=== PATIENT | male | born 1965 | race Caucasian/White ===

== ENCOUNTER 2018-05-07 20:11 | Emergency (ER) | payer BC ==
[2018-05-07 20:34] VITALS: RESP 20; O2SAT 96
--- NOTE | 2018-05-07 20:46 | C.PDOC ---
History Of Present Illness 52 year old male presets to the ED c/o dizziness, lightheadedness, headache that started today at approximately 13:00-13:30. Patient is ambulating without any difficulty however he still reports feeling a little off. Patient denies fever, chills, nausea, vomit, trauma, injury, fall, tinnitus, visual changes. Time Seen by Provider: 05/07/18 20:46 Chief Complaint (Nursing): Dizziness/Lightheaded History Per: Patient History/Exam Limitations: no limitations Onset/Duration Of Symptoms: Hrs Current Symptoms Are (Timing): Still Present Activity At Onset Of Symptoms: Standing Associated Symptoms Preceding Syncopal Episode: Lightheadedness Seizure Or Post-ictal Symptoms: None Fall Associated With With Symptoms: No Severity: None Recent travel outside of the [place]: No Additional History Per: Patient Past Medical History Reviewed: Historical Data, Nursing Documentation, Vital Signs Vital Signs: Last Vital Signs Temp 98.5 F 05/07/18 20:30 Pulse 73 05/07/18 20:30 Resp 20 05/07/18 20:30 BP 183/114 H 05/07/18 20:30 Pulse Ox 96 05/07/18 23:23 - Medical History PMH: Asthma Surgical History: No Surg Hx Family History: States: Unknown Family Hx - Social History Hx Tobacco Use: No Hx Alcohol Use: Yes Hx Substance Use: No - Immunization History Hx Tetanus Toxoid Vaccination: No Hx Influenza Vaccination: No Hx Pneumococcal Vaccination: No Review Of Systems Constitutional: Negative for: Fever, Chills Eyes: Negative for: Vision Change ENT: Negative for: Ear Pain Respiratory: Negative for: Cough, Shortness of Breath Gastrointestinal: Negative for: Nausea, Vomiting Neurological: Positive for: Headache, Dizziness. Negative for: Weakness, Numbness Physical Exam - Physical Exam Appears: Non-toxic, No Acute Distress Skin: Warm, Dry Head: Normacephalic Eye(s): bilateral: Normal Inspection, PERRL, EOMI Oral Mucosa: Moist Throat: No Erythema, No Exudate Neck: Supple Chest: Symmetrical Cardiovascular: Rhythm Regular Respiratory: No Rales, No Rhonchi, No Wheezing Gastrointestinal/Abdominal: Soft, No Tenderness, No Guarding, No Rebound Back: Normal Inspection Extremity: No Tenderness, No Swelling Extremity: Bilateral: Atraumatic, Normal Color And Temperature, Normal ROM Neurological/Psych: Oriented x3, Normal Speech, Other (no nystagmus ) Gait: Steady ED Course And Treatment - Laboratory Results Result Diagrams: 05/07/18 21:29 05/07/18 21:29 ECG: Interpreted By Me, Viewed By Me ECG Rhythm: Sinus Rhythm (70), Nonspecific Changes O2 Sat by Pulse Oximetry: 96 (ON RA) Pulse Ox Interpretation: Normal - Radiology CXR: Interpreted by Me, Viewed By Me - CT Scan/US CT head Other Rad Studies (CT/US): Read By Radiologist, Radiology Report Reviewed CT/US Interpretation: FINDINGS: Brain: Unremarkable. No hemorrhage. No significant white matter disease. No edema. Normal. evangelista white matter interfaces are present. Ventricles: Unremarkable. No ventriculomegaly. Bones/ joints: Unremarkable. No acute fracture. Soft tissues: Unremarkable. Sinuses: Unremarkable as visualized. No acute sinusitis. Mastoid air cells: Unremarkable as visualized. No mastoid effusion. IMPRESSION: Normal head/ brain CT. Thank you for allowing us to participate in the care of your patient. Dictated and Authenticated by: Zenon Henry MD. 05/07/2018 11:18 PM Eastern Time ([place] & [place]) Progress Note: Labs. - CT head. - EKG. - Labs. - CXR. - Antivert 25 mg PO. - IV fluids. - UA Reevaluation Time: 00:53 Reassessment Condition: Improved Disposition Counseled Patient/Family Regarding: Studies Performed, Diagnosis, Need For Followup, Rx Given - Disposition Referrals: [facility] [Outside] [facility] [Outside] Disposition: HOME/ ROUTINE Disposition Time: 20:46 Condition: FAIR Additional Instructions: Please return if symptoms recur Prescriptions: Meclizine [Antivert] 25 mg PO TID #15 tab Ondansetron ODT [Zofran ODT] 1 odt PO BID PRN #6 odt PRN Reason: Nausea/Vomiting Instructions: Labyrinthitis, Dizziness, Nonvertigo, (DC) Forms: [facility] (Bulgarian) - Clinical Impression Clinical Impression: Dizziness, Labyrinthitis - Scribe Statement The provider has reviewed the documentation as recorded by the Scribe Didier Ruiz All medical record entries made by the Scribe were at my direction and personally dictated by me. I have reviewed the chart and agree that the record accurately reflects my personal performance of the history, physical exam, medical decision making, and the department course for this patient. I have also personally directed, reviewed, and agree with the discharge instructions and disposition.
[2018-05-07] MEDS ORDERED: Sodium Chloride 0.9% 1,000 ML IV ONE (21:12)
[2018-05-07 21:33] LABS: BASO % 0.6 % (0.0-2.0); EOS # 0.3 K/uL (0.0-0.7); EOS % 4.2 % (0.0-4.0); HEMOGLOBIN 14.7 g/dL (12.0-18.0); LYMPH # 3.9 K/uL (1.0-4.3); LYMPH % 48.2 % (20.0-40.0); MEAN CORPUSCULAR HEMOGLOBIN 29.3 pg (27.0-31.0); MEAN CORPUSCULAR HGB CONC 33.7 g/dL (33.0-37.0); MEAN PLATELET VOLUME 7.9 fL (7.2-11.7); MONO # 0.7 K/uL (0.0-0.8); MONO % 8.5 % (0.0-10.0); NEUT # 3.1 K/uL (1.8-7.0); NEUT % 38.5 % (50.0-75.0); NRBC % 0.1 % (0.0-2.0); RED CELL DISTRIBUTION WIDTH 12.9 % (11.5-14.5); WHITE BLOOD COUNT 8.1 K/uL (4.8-10.8)
[2018-05-07 21:46] LABS: ALB/GLOB RATIO 1.3 (1.0-2.1); ALBUMIN 4.2 g/dL (3.5-5.0); CALCIUM 9.5 mg/dl (8.6-10.4); GFR AFRICAN-AMERICAN > 60; GFR NON-AFRICAN AMERICAN > 60; PROTHROMBIN TIME 10.9 SECONDS (9.7-12.2)
[2018-05-07 21:53] LABS: ALT/SGPT 41 U/L (21-72); AST/SGOT 38 U/L (17-59); BLOOD UREA NITROGEN 15 mg/dL (9-20)
[2018-05-07 22:00] LABS: SQUAMOUS EPITHIAL < 1 /hpf (0-5); URINE BILIRUBIN NEGATIVE (NEGATIVE); URINE BLOOD NEGATIVE (NEGATIVE); URINE CLARITY Clear (Clear); URINE COLOR Yellow (YELLOW); URINE GLUCOSE (UA) NORMAL (Normal); URINE LEUKOCYTE ESTERASE NEG Leu/uL (Negative); URINE PROTEIN NEGATIVE (NEGATIVE); URINE UROBILINOGEN NORMAL mg/dL (0.2-1.0)
[2018-05-08 01:10] VITALS: BP 140/90; PULSE 72; TEMP 98.2
--- NOTE | 2018-05-08 08:20 | CT ---
PROCEDURE: CT HEAD WITHOUT CONTRAST. HISTORY: dizziness , headache COMPARISON: None available. TECHNIQUE: Axial computed tomography images were obtained through the head/brain without intravenous contrast. Radiation dose: Total exam DLP = 878 mGy-cm. This CT exam was performed using one or more of the following dose reduction techniques: Automated exposure control, adjustment of the mA and/or kV according to patient size, and/or use of iterative reconstruction technique. FINDINGS: HEMORRHAGE: No intracranial hemorrhage. BRAIN: No mass effect or edema. No atrophy or chronic microvascular ischemic changes. VENTRICLES: Unremarkable. No hydrocephalus. CALVARIUM: Unremarkable. PARANASAL SINUSES: Unremarkable as visualized. No significant inflammatory changes. MASTOID AIR CELLS: Unremarkable as visualized. No inflammatory changes. OTHER FINDINGS: None. IMPRESSION: Normal CT of the Head.
--- NOTE | 2018-05-08 11:33 | RAD ---
PROCEDURE: CHEST RADIOGRAPH, 1 VIEW HISTORY: SOB COMPARISON: Comparison chest dated 02/17/2015 FINDINGS: LUNGS: Poor inspiration with low lung volumes, crowded bronchovascular markings and mild bibasilar atelectasis. PLEURA: No pneumothorax or pleural fluid seen. CARDIOVASCULAR: Normal. OSSEOUS STRUCTURES: No significant abnormalities. VISUALIZED UPPER ABDOMEN: Normal. OTHER FINDINGS: None. IMPRESSION: Poor inspiration with low lung volumes, crowded bronchovascular markings and mild bibasilar atelectasis.
--- NOTE | 2018-05-10 12:13 | CARD ---
APPROVED REPORT EKG Measurement Heart [id number] MT [id number] <Conclusion> Normal sinus rhythm Normal ECG
== END 2018-05-08 01:30 | disposition home or self-care (01) ==
LOC: C.ER 20:11
DX: R42 Dizziness and giddiness (principal); H83.09 Labyrinthitis, unspecified ear
CPT/HCPCS: 70450; 71045; 80053; 81001; 85025; 85610; 85730; 96360; 99285; J7030

== ENCOUNTER 2019-04-09 07:04 | Observation (INO) | payer BC ==
[2019-04-09 07:46] LABS: BASO # 0.1 K/uL (0.0-0.2); EOS # 0.4 K/uL (0.0-0.7); EOS % 5.1 % (0.0-4.0); HEMOGLOBIN 14.9 g/dL (12.0-18.0); LYMPH # 4.4 K/uL (1.0-4.3); LYMPH % 56.3 % (20.0-40.0); MEAN CORPUSCULAR HEMOGLOBIN 30.3 pg (27.0-31.0); MEAN CORPUSCULAR HGB CONC 34.4 g/dL (33.0-37.0); MEAN PLATELET VOLUME 8.8 fL (7.2-11.7); MONO # 0.7 K/uL (0.0-0.8); MONO % 8.5 % (0.0-10.0); NEUT # 2.3 K/uL (1.8-7.0); NEUT % 29.1 % (50.0-75.0); NRBC % 0.1 % (0.0-2.0); RBC 4.93 Mil/uL (4.40-5.90); RED CELL DISTRIBUTION WIDTH 12.9 % (11.5-14.5); WHITE BLOOD COUNT 7.8 K/uL (4.8-10.8)
--- NOTE | 2019-04-09 07:53 | C.PDOC ---
History Of Present Illness 53 y/o male presents to the ER complaining of left sided chest pain which began at 1 am. Patient states that the pain is constant and non-radiating; it is not reproducible and nonpleuritic. The prior night, he was woken up from sleep with heart racing/thumbing. Patient does not have regular follow up with a PMD. He denies SOB, palpitations, cough, fever, chills. Patient has PMhx of seasonal allergies/asthma. (+) [place] in both grandparents. Time Seen by Provider: 04/09/19 07:09 Chief Complaint (Nursing): Chest Pain History Per: Patient History/Exam Limitations: no limitations Onset/Duration Of Symptoms: Hrs Current Symptoms Are (Timing): Still Present Severity: Moderate Quality: "Pain" Past Medical History Reviewed: Historical Data, Nursing Documentation, Vital Signs Vital Signs: Last Vital Signs Temp 98.6 F 04/09/19 07:09 Pulse 79 04/09/19 07:09 Resp 18 04/09/19 07:09 BP 185/112 H 04/09/19 07:09 Pulse Ox 94 L 04/09/19 07:09 Primary Care Provider: Non [facility] Provider, - Medical History PMH: Asthma Surgical History: No Surg Hx Family History: States: No Known Family Hx - Social History Hx Tobacco Use: No Hx Alcohol Use: Yes Hx Substance Use: No - Immunization History Hx Tetanus Toxoid Vaccination: No Hx Influenza Vaccination: No Hx Pneumococcal Vaccination: No Review Of Systems Constitutional: Negative for: Fever, Chills Cardiovascular: Positive for: Chest Pain. Negative for: Palpitations Respiratory: Negative for: Cough, Shortness of Breath Gastrointestinal: Negative for: Nausea, Vomiting Physical Exam - Physical Exam Appears: Other (comfortable, speaking in full sentences) Skin: Normal Color, Warm, Dry Head: Atraumatic, Normacephalic Eye(s): bilateral: Normal Inspection Nose: Normal Oral Mucosa: Moist Neck: Supple Chest: Symmetrical, No Tenderness Cardiovascular: Rhythm Regular Respiratory: Normal Breath Sounds, No Rales, No Rhonchi, No Wheezing Gastrointestinal/Abdominal: Normal Exam, Soft, No Tenderness, No Guarding, No Rebound Extremity: Normal ROM, Other (no leg edema) Neurological/Psych: Oriented x3, Normal Speech ED Course And Treatment - Laboratory Results Result Diagrams: 04/09/19 07:43 04/09/19 07:43 ECG: Interpreted By Me, Viewed By Me ECG Rhythm: Sinus Rhythm Interpretation Of ECG: NSR with no acute ST/T wave changes Rate From EC O2 Sat by Pulse Oximetry: 94 (RA) Pulse Ox Interpretation: Normal Progress Note: Blood work, EKG, CXR ordered and reviewed. Patient given PO ASA and SL nitro. (+) relief of chest pain with nitroglycerin. Patient does not have PMD or get regular care, (+) h/o smoking, was hypertensive on arrival, (+) [place] history in two grandparents - will keep for chest pain observation. Disposition - Disposition Forms: [facility] (Japanese) - Scribe Statement The provider has reviewed the documentation as recorded by the Pashaibnoah Frausto Provider Attestation: All medical record entries made by the Scribe were at my direction and personally dictated by me. I have reviewed the chart and agree that the record accurately reflects my personal performance of the history, physical exam, medical decision making, and the department course for this patient. I have also personally directed, reviewed, and agree with the discharge instructions and disposition.
[2019-04-09 07:54] LABS: PARTIAL THROMBOPLASTIN TIME 32.9 SECONDS (21-34)
[2019-04-09 08:02] LABS: ALB/GLOB RATIO 1.5 (1.0-2.1); ALBUMIN 4.5 g/dL (3.5-5.0); ALT/SGPT 37 U/L (21-72); AST/SGOT 39 U/L (17-59); BLOOD UREA NITROGEN 18 mg/dL (9-20); CALCIUM 9.2 mg/dl (8.6-10.4); GFR NON-AFRICAN AMERICAN > 60
[2019-04-09 08:12] LABS: CK-MB 1.12 ng/mL (0.0-3.38)
[2019-04-09 11:10] LABS: BARBITURATES, UR NEGATIVE (NEGATIVE); OPIATES, UR NEGATIVE (NEGATIVE); PHENCYCLIDINE, UR NEGATIVE (NEGATIVE)
[2019-04-09 11:36] LABS: BENZODIAZEPINES, UR NEGATIVE (NEGATIVE)
--- NOTE | 2019-04-09 12:00 | RAD ---
Date of service: 04/09/2019 PROCEDURE: CHEST RADIOGRAPH, 1 VIEW HISTORY: cp COMPARISON: 05/07/2018 FINDINGS: LUNGS: Clear. PLEURA: No pneumothorax or pleural fluid seen. CARDIOVASCULAR: No aortic atherosclerotic calcification present. Normal. OSSEOUS STRUCTURES: No significant abnormalities. VISUALIZED UPPER ABDOMEN: Normal. OTHER FINDINGS: None. IMPRESSION: No active disease.
[2019-04-09] MEDS ORDERED: Enoxaparin 40 mg Syringe SC ONE (14:34)
--- NOTE | 2019-04-10 03:32 | CON ---
DATE: 04/09/2019 CARDIOLOGY CONSULTATION REASON FOR CONSULTATION: Chest pain. HISTORY OF PRESENT ILLNESS: The patient is a 53-year-old male who smokes cigar and is on Singulair at home 10 mg daily for what he describes as allergy. The patient presents because of chest pain which is sharp, left sided and nonradiating. The patient did report shortness of breath, but denies any diaphoresis, although in the emergency room reporting the chest pain was , shortness of breath was denied. The patient underwent treadmill stress test in 05/2018 which was negative for ischemia. There was hypertensive response to exercise, and the patient has zero exercise tolerance. SOCIAL HISTORY: The patient is a cigar smoker. 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 He is , lives with his . MEDICATIONS: Singulair 10 mg once a day. Pneumococcal vaccine was given as well as aspirin 325 mg daily in the emergency room. REVIEW OF SYSTEMS: No nausea or vomiting. No fever or chills. No productive cough. PHYSICAL EXAMINATION: GENERAL: The patient is a middle-aged male who does not appear to be in any distress. VITAL SIGNS: Blood pressure 147/81, heart rate 63, temperature 97.5, respirations 20. HEENT: Normocephalic. NECK: No JVD. CHEST: Clear. HEART: S1 and S2 are regular. ABDOMEN: Soft. EXTREMITIES: No edema. LABORATORY DATA: Urine drug screen is negative. SMA-7 is within normal limits except for glucose of 115 and creatinine of 0.6. Admitting hemoglobin, hematocrit, white count and platelet count are within normal limits. EKG revealed sinus rhythm, consider old septal infarct. Two sets of troponins are negative. ASSESSMENT: 1. Atypical chest pain. Myocardial infarction is ruled out. 2. Rule out pulmonary infarction. 3. Rule out less likely possibility of deep venous thrombosis. The patient has numbness starting his right thigh last night. RECOMMENDATIONS: Resume aspirin 81 mg once a day. Start Lovenox at 30 mg subcutaneously daily. Obtain serum D-dimer as well as venous Doppler of the lower extremities. Raúl Belcher MD
--- NOTE | 2019-04-10 04:28 | HP ---
HISTORY OF PRESENT ILLNESS: This is a 53-year-old male with no significant past medical history, presented to emergency room with left-sided sharp chest pain that started about 6 to 7 hours prior to admission. The patient stated that the pain was constant and nonradiating. Prior night, the patient was woken up from sleep with feeling of heart racing. The patient did not have any recent checkup or followup with any primary care physician. The patient denies shortness of breath, palpitation, cough, fever, or chills. PAST MEDICAL HISTORY: Denies. FAMILY HISTORY: No significant family history also. MEDICATIONS: Singulair 10 mg daily. SOCIAL HISTORY: Occasional smoking cigar. No EtOH or substance abuse. FAMILY HISTORY: Noncontributory. ALLERGIES: . PHYSICAL EXAMINATION: GENERAL: The patient is in bed not, in any cardiopulmonary distress. VITAL SIGNS: Blood pressure 132/78, temperature 97.8, respiratory rate 20 and pulse 66. HEENT: Pupils equal, reactive to light. Normal-appearing mucosa of the conjunctivae, oropharynx, and nasal membrane mucosa. NECK: Supple. No JVD, no carotid bruit. No lymph node. No thyromegaly. CHEST AND LUNGS: Bilateral symmetrical expansion. Good air exchange. No rales, no rhonchi. CARDIOVASCULAR: PMI not localized. S1, S2. No additional sounds. ABDOMEN: Normoactive bowel sounds. No tenderness, no organomegaly. No masses. EXTREMITIES: No cyanosis, no clubbing, no edema. CENTRAL NERVOUS SYSTEM: Alert, awake, oriented x3. No neurological deficit could be appreciated. ASSESSMENT: 1. Chest pain, rule out acute coronary syndrome. 2. Seasonal allergies. 3. Hypertension as the patient came with blood pressure of 185/112. PLAN: We will do cardiac enzymes every 8 hours, cardiology consult, echocardiogram. Start patient the patient on aspirin and continue Singulair. Katherine Francis MD
[2019-04-10 08:10] VITALS: BP 132/84; RESP 20; TEMP 97.2
[2019-04-10 08:18] LABS: HDL CHOLESTEROL 49 mg/dL (30-70)
[2019-04-10 08:29] LABS: LDL CHOLESTEROL 189 mg/dL (0-129)
[2019-04-10] MEDS ORDERED: Enoxaparin 40 mg Syringe SC SCH (10:00)
[2019-04-10] MEDS ORDERED: Pneumococcal 23-Valent Vaccine IM ONE (10:00)
--- NOTE | 2019-04-10 10:25 | NM ---
Date of service: 04/09/2019 COMPARISON: April 09, 2019. TECHNIQUE: 10.0 mCi technetium 99-m Xe-133 Gas. 5.0 mCI technetium 99-m MAA administered intravenously. FINDINGS: VENTILATION COMPONENT: Normal. PERFUSION COMPONENT: Heterogeneous distribution of radionuclide. No geographic, segmental, lobar abnormalities apparent on the present examination. IMPRESSION: Low probability ventilation perfusion scan for pulmonary embolism. Concordant findings (preliminary report) provided by [facility].
--- NOTE | 2019-04-10 11:48 | CARD ---
APPROVED REPORT Date of service: 04/09/2019 EKG Measurement Heart [id number] <Conclusion> Normal sinus rhythm Septal infarct, age undetermined Abnormal ECG
--- NOTE | 2019-04-10 12:33 | CARD ---
APPROVED REPORT Date of service: 04/10/2019 EXAM: Two-dimensional and M-mode echocardiogram with Doppler and color Doppler. Other Information Quality : GoodRhythm : NSR INDICATION Dizziness and Vertigo Dyspnea Chest Pain 2D DIMENSIONS IVSd1.2 (0.7-1.1cm)LVDd4.8 (3.9-5.9cm) PWd0.9 (0.7-1.1cm)LA Qhaurg54 (18-58mL) LVDs3.1 (2.5-4.0cm)FS (%) 35.5 % LVEF (%)64.8 (>50%)LVEF (Rai's)71.87 % IVC0.00 cm M-Mode DIMENSIONS Left Atrium (MM)2.83 (2.5-4.0cm)IVSd1.35 (0.7-1.1cm) Aortic Root3.56 (2.2-3.7cm)LVDd4.63 (4.0-5.6cm) Aortic Cusp Exc.2.10 (1.5-2.0cm)PWd1.15 (0.7-1.1cm) FS (%) 35 %LVDs3.01 (2.0-3.8cm) LVEF (%)64 (>50%) Mitral Valve MV E Ibicuuoq61.4cm/sMV A Gshewwwk67.3cm/sE/A ratio1.0 TDI Lateral E' Peak V9.64cm/sMedial E' Peak V6.35cm/sE/Lateral E'5.6 E/Medial E'8.6 Tricuspid Valve TR Peak Mmictbku496ii/sTR Peak Gr.17bjOfRXZC38hgOc LEFT VENTRICLE The left ventricle is normal size. There is normal left ventricular wall thickness. Left ventricle systolic function is normal. The Ejection Fraction is 60-65%. There is normal LV segmental wall motion. The left ventricular diastolic function is normal. There is no ventricular septal defect visualized. RIGHT VENTRICLE The right ventricle is normal size. The right ventricular systolic function is normal. ATRIA The left atrium size is normal. The right atrium size is normal. AORTIC VALVE The aortic valve is tri-cuspid. The aortic valve is normal in structure. No aortic regurgitation is present. There is no aortic valvular stenosis. MITRAL VALVE The mitral valve is normal in structure. There is no evidence of mitral valve prolapse. There is no mitral valve regurgitation noted. TRICUSPID VALVE The tricuspid valve is normal in structure. There is trace tricuspid regurgitation. Right ventricular systolic pressure is estimated at less than 30 mmHg. There is no pulmonary hypertension. PULMONIC VALVE The pulmonary valve is normal in structure. There is no pulmonic valvular regurgitation. GREAT VESSELS The aortic root is normal in size. The ascending aorta is normal in size. The IVC is normal in size and collapses >50% with inspiration. <Conclusion> Left ventricle systolic function is normal. The Ejection Fraction is 60-65%. The left ventricular diastolic function is normal.
--- NOTE | 2019-04-10 13:00 | VASCLAB ---
Date of service: 04/10/2019 PROCEDURE: Lower Extremity Venous Duplex Exam. HISTORY: Leg swelling PRIORS: None. TECHNIQUE: Bilateral common femoral, femoral, popliteal and posterior tibial, peroneal and great saphenous veins were evaluated. Flow was assessed with color Doppler, compressibility, assessment of phasic flow and augmentation response. Report prepared by Marvin Luo, SABRINA, RVT FINDINGS: RIGHT: 1. Common Femoral Vein: 1.1. Compressibility - Fully compressible: Thrombus - None : Flow - Phasic: Augmentation -Normal: Reflux - None. 2. Femoral Vein: 2.1. Compressibility - Fully compressible: Thrombus - None : Flow - Phasic: Augmentation -Normal: Reflux - None. 3. Popliteal Vein: 3.1. Compressibility - Fully compressible: Thrombus - None : Flow - Phasic: Augmentation -Normal: Reflux - None. 4. Posterior Tibial Vein: 4.1. Compressibility - Fully compressible: Thrombus - None: Flow - Phasic: Augmentation -Normal: Reflux - None. 5. Peroneal Vein: 5.1. Compressibility - Fully compressible: Thrombus - None: Flow - Phasic: Augmentation -Normal: Reflux - None. 6. Great Saphenous Vein: 6.1. Compressibility - Fully compressible: Thrombus - None: Flow - Phasic: Augmentation - Normal: Reflux - None. LEFT: 1. Common Femoral Vein: 1.1. Compressibility - Fully compressible: Thrombus - None: Flow - Phasic: Augmentation -Normal: Reflux - None. 2. Femoral Vein: 2.1. Compressibility - Fully compressible: Thrombus - None: Flow - Phasic: Augmentation -Normal: Reflux - None. 3. Popliteal Vein: 3.1. Compressibility - Fully compressible: Thrombus - None : Flow - Phasic: Augmentation -Normal: Reflux - None. 4. Posterior Tibial Vein: 4.1. Compressibility - Fully compressible: Thrombus - None: Flow - Phasic: Augmentation -Normal: Reflux - None. 5. Peroneal Vein: 5.1. Compressibility - Fully compressible: Thrombus - None: Flow - Phasic: Augmentation -Normal: Reflux - None. 6. Great Saphenous Vein: 6.1. Compressibility - Fully compressible: Thrombus - None: Flow - Phasic: Augmentation - Normal: Reflux - None. OTHER FINDINGS: Right: None significant. Left: None significant. IMPRESSION: Right: No evidence of deep or superficial vein thrombosis of the right lower extremity. Normal valve function noted of the right side. Left: No evidence of deep or superficial vein thrombosis of the left lower extremity. Normal valve function noted of the left side.
[2019-04-10 13:53] VITALS: PULSE 70
[2019-04-10 14:24] VITALS: O2SAT 98
--- NOTE | 2019-04-11 02:50 | PN ---
DATE: 04/10/2019 SUBJECTIVE: The patient denies any chest pain or leg pain. PHYSICAL EXAMINATION: VITAL SIGNS: Blood pressure 132/84, heart rate 98, temperature 97.2, respiration 20. HEENT: Normocephalic. CHEST: Clear. HEART: S1 and S2 regular. EXTREMITIES: No edema. LABORATORY DATA: Lipid profile; triglycerides 242, total cholesterol 264, LDL cholesterol is 189. All are elevated. Three sets of troponins are negative. Ventilation/perfusion scan was performed and so a CT angio because of the patient's severe ALLERGY TO SHELLFISH and was low probability for PE. Venous Doppler of the lower extremity was performed. The report is still pending. ASSESSMENT: 1. Atypical chest pain, myocardial infarction is ruled out. 2. Hyperlipidemia. 3. Right thigh numbness upon presentation. RECOMMENDATIONS: Continue current aspirin 81 mg once a day, subcutaneous Lovenox 40 mg once a day, start Crestor 20 mg once a day. I will follow venous Doppler of lower extremity and review the echocardiographic study performed today. Raúl Belcher MD
== END 2019-04-10 14:56 | disposition home or self-care (01) ==
LOC: C.ER 07:04 → C.9E 09:58 → C.5S 10:40
PROVIDERS: ADMIT Internal Medicine; ATTEND Internal Medicine
DX: R07.89 Other chest pain (principal); J45.909 Unspecified asthma, uncomplicated; R00.0 Tachycardia, unspecified; M79.89 Other specified soft tissue disorders; R20.0 Anesthesia of skin; E78.5 Hyperlipidemia, unspecified; F17.290 Nicotine dependence, other tobacco product, uncomplicated; I10 Essential (primary) hypertension
CPT/HCPCS: 36415; 71045; 78582; 80053; 80061; 82550; 82553; 84484; 85025; 85378; 85610; 85730; 90732; 93005; 93306; 93970; 99285; A9540; A9558; G0009; G0378; G0480; J1650